=== PATIENT | female | born 1955 | race Caucasian/White ===

== ENCOUNTER 2017-08-28 20:52 | Inpatient (IN) | payer OTHER ==
--- NOTE | 2017-08-28 22:16 | C.PDOC ---
Time Seen by Provider: 08/28/17 21:40 Chief Complaint (Nursing): Abnormal Skin Integrity Past Medical History Vital Signs: Last Vital Signs Temp 98 F 08/28/17 21:19 Pulse 92 H 08/28/17 21:19 Resp 20 08/28/17 21:19 BP 123/79 08/28/17 21:19 Pulse Ox 99 08/28/17 21:19 - Medical History PMH: Hypothyroidism, TIA (2012) Surgical History: Appendectomy - [facility] Procedures DX ULTRASOUND-HEART (03/21/13) OTHER ESOPHAGOSCOPY (03/21/13) - Social History Hx Tobacco Use: No Hx Alcohol Use: No Hx Substance Use: No - Immunization History Hx Tetanus Toxoid Vaccination: Yes Hx Influenza Vaccination: Yes Hx Pneumococcal Vaccination: Yes ED Course And Treatment O2 Sat by Pulse Oximetry: 99 Disposition Discussed With : Rolando Salmon Doctor Will See Patient In The: Hospital Counseled Patient/Family Regarding: Studies Performed, Diagnosis - Disposition Disposition: HOSPITALIZED Disposition Time: 22:16 Condition: FAIR Forms: [facility] (Guamanian) - Clinical Impression Clinical Impression: Cellulitis
--- NOTE | 2017-08-28 22:20 | C.PDOC ---
History Of Present Illness Gregory Ceballos, 62 year old female presents to the Emergency Department complaining of knee injury and sleep apnea. Reports on July 25, patient had a left knee replacement. After surgery, patient visits physical therapy and when bending leg, rachana have moved. States she has the wound drained and her orthopaedic gave antibiotics without improvment to the left leg. Complaining it is purulent now. Denies fever or chills. PMD: Non [facility]PH Provider Time Seen by Provider: 08/28/17 21:40 Chief Complaint (Nursing): Abnormal Skin Integrity History Per: Patient History/Exam Limitations: no limitations Current Symptoms Are (Timing): Still Present Location Of Injury: Left: Knee Quality Of Symptoms: Draining Past Medical History Vital Signs: Last Vital Signs Temp 98.1 F 08/29/17 07:43 Pulse 84 08/29/17 07:43 Resp 20 08/29/17 07:43 BP 127/80 08/29/17 07:43 Pulse Ox 99 08/29/17 16:10 - Medical History PMH: Hypothyroidism, TIA (2012) Surgical History: Appendectomy - [facility] Procedures DX ULTRASOUND-HEART (03/21/13) OTHER ESOPHAGOSCOPY (03/21/13) Family History: States: Unknown Family Hx - Social History Hx Tobacco Use: No Hx Alcohol Use: No Hx Substance Use: No - Immunization History Hx Tetanus Toxoid Vaccination: Yes Hx Influenza Vaccination: Yes Hx Pneumococcal Vaccination: Yes Review Of Systems Except As Marked, All Systems Reviewed And Found Negative. Constitutional: Negative for: Fever, Chills Musculoskeletal: Positive for: Leg Pain (left knee) Physical Exam - Physical Exam Appears: Well Skin: Normal Color, Warm, Dry Head: Atraumatic, Normacephalic Neck: Normal, Normal ROM Cardiovascular: Rhythm Regular, No Murmur Respiratory: Normal Breath Sounds Gastrointestinal/Abdominal: Normal Exam, Bowel Sounds, Soft, No Tenderness Extremity: Normal ROM, Tenderness (left knee), Other (left knee vertical scar, hole, no prulent or blood drainage) Neurological/Psych: Oriented x3 ED Course And Treatment - Laboratory Results Result Diagrams: 08/28/17 22:15 08/28/17 22:15 ECG: Interpreted By Me, Viewed By Me ECG Rhythm: Sinus Rhythm ECG Interpretation: Normal Interpretation Of ECG: Normal intervals, normal axis, nonspecific ST changes Rate From EC O2 Sat by Pulse Oximetry: 99 (RA) Pulse Ox Interpretation: Normal Medical Decision Making Medical Decision Making: Time: 21:58 Initial Plan: --EKG --CMP --CBC --Chest x-ray --Knee 3 views --Blood culture --Saline Lock, 3ml NS Flush --Reevaluation Time: 22:18 Admitted to medical search: cellulites of left knee. Case discussed with Dr. Salmon and would like to admit patient. Keep patient npo for OR in AM. Scribe Attestation: Documented by Sulaiman Stevenson, acting as a scribe for Justin Lea MD Provider Scribe Attestation: All medical record entries made by the Scribe were at my direction and personally dictated by me. I have reviewed the chart and agree that the record accurately reflects my personal performance of the history, physical exam, medical decision making, and the department course for this patient. I have also personally directed, reviewed, and agree with the discharge instructions and disposition. Disposition Discussed With : Rolando Salmon Doctor Will See Patient In The: Hospital Counseled Patient/Family Regarding: Studies Performed, Diagnosis - Disposition Disposition: HOSPITALIZED Disposition Time: 22:16 Condition: FAIR - Clinical Impression Clinical Impression: Cellulitis
[2017-08-28 22:21] LABS: BASO # 0.1 K/uL (0.0-0.2); BASO % 0.9 % (0.0-2.0); EOS # 0.4 K/uL (0.0-0.7); EOS % 5.1 % (0.0-4.0); LYMPH # 1.8 K/uL (1.0-4.3); LYMPH % 24.9 % (20.0-40.0); MEAN CELL VOLUME 86.3 fL (81.0-99.0); MEAN CORPUSCULAR HEMOGLOBIN 28.1 pg (27.0-31.0); MEAN CORPUSCULAR HGB CONC 32.6 g/dL (33.0-37.0); MEAN PLATELET VOLUME 9.8 fL (7.2-11.7); MONO # 0.7 K/uL (0.0-0.8); MONO % 9.4 % (0.0-10.0); NEUT # 4.4 K/uL (1.8-7.0); NEUT % 59.7 % (50.0-75.0); NRBC % 0.1 % (0.0-2.0); RBC 3.92 Mil/uL (3.80-5.20); RED CELL DISTRIBUTION WIDTH 14.6 % (11.5-14.5); WHITE BLOOD COUNT 7.4 K/uL (4.8-10.8)
[2017-08-28 22:29] LABS: INR 1.1; PROTHROMBIN TIME 12.1 SECONDS (9.7-12.2)
[2017-08-28 22:35] LABS: ALB/GLOB RATIO 1.2 (1.0-2.1); ALBUMIN 4.1 g/dL (3.5-5.0); ALT/SGPT 24 U/L (9-52); AST/SGOT 25 U/L (14-36); BLOOD UREA NITROGEN 17 mg/dL (7-17); CALCIUM 8.8 mg/dl (8.6-10.4); GFR AFRICAN-AMERICAN > 60; GFR NON-AFRICAN AMERICAN > 60
--- NOTE | 2017-08-29 07:37 | CP.PCM.HP ---
History of Present Illness - History of Present Illness History of Present Illness: 62F s/p left total knee replacement 07/25/17 says a staple popped out while the patient was bending knee in PT and has had continued drainage from that site, presents to ER for evaluation for possible infection of left knee. On plavix for TIA in past. PMH: hypothyroid Present on Admission - Present on Admission Any Indicators Present on Admission: No Past Patient History - Past Medical History & Family History Past Medical History?: Yes - Past Social History Smoking Status: Never Smoked - CARDIAC Hx Cardiac Disorders: No - PULMONARY Hx Respiratory Disorders: No - NEUROLOGICAL Hx Neurological Disorder: Yes Hx Transient Ischemic Attacks (TIA): Yes (2012) - HEENT Hx HEENT Problems: No - RENAL Hx Chronic Kidney Disease: No - ENDOCRINE/METABOLIC Hx Endocrine Disorders: Yes Hx Hypothyroidism: Yes - HEMATOLOGICAL/ONCOLOGICAL Hx Blood Disorders: No - INTEGUMENTARY Hx Dermatological Problems: No - MUSCULOSKELETAL/RHEUMATOLOGICAL Hx Falls: No - GASTROINTESTINAL Hx Gastrointestinal Disorders: No - GENITOURINARY/GYNECOLOGICAL Hx Genitourinary Disorders: No - PSYCHIATRIC Hx Substance Use: No - SURGICAL HISTORY Hx Surgeries: Yes Hx Appendectomy: Yes Hx Musculoskeletal Surgery: Yes (Left knee replacement) - ANESTHESIA Hx Anesthesia: Yes Hx Anesthesia Reactions: No Hx Malignant Hyperthermia: No Has any member of the family had a problem w/ anesthesia?: No Meds Allergies/Adverse Reactions: Allergies Allergy/AdvReac Type Severity Reaction Status Date / Time No Known Allergies Allergy Verified 08/28/17 21:25 Physical Exam - Constitutional Appears: Well, No Acute Distress - Head Exam Head Exam: ATRAUMATIC - Respiratory Exam Respiratory Exam: NORMAL BREATHING PATTERN - Cardiovascular Exam Cardiovascular Exam: REGULAR RHYTHM - Back Exam Additional comments: small pin point area of drainage from lateral knee lateral to incision. Incision healed. small effusion. +ROM ankle/toes, sensation itact +DP/PT pulses calves soft NT eng hoamns - Neurological Exam Neurological exam: Alert, Oriented x3 - Psychiatric Exam Psychiatric exam: Normal Affect, Normal Mood - Skin Skin Exam: Normal Color, Warm Results - Vital Signs Recent Vital Signs: Last Vital Signs Temp 98 F 08/29/17 00:53 Pulse 84 08/29/17 00:53 Resp 18 08/29/17 02:06 BP 123/70 08/29/17 00:53 Pulse Ox 97 08/29/17 00:53 - Labs Result Diagrams: 08/30/17 07:23 08/30/17 07:23 Labs: Laboratory Results - last 24 hr 08/28/17 08/28/17 08/28/17 22:15 22:15 22:15 WBC 7.4 RBC 3.92 Hgb 11.0 Hct 33.8 L MCV 86.3 D MCH 28.1 MCHC 32.6 L RDW 14.6 H Plt Count 171 MPV 9.8 Neut % (Auto) 59.7 Lymph % (Auto) 24.9 [place] % (Auto) 9.4 Eos % (Auto) 5.1 H Baso % (Auto) 0.9 Neut # 4.4 Lymph # 1.8 [place] # 0.7 Eos # 0.4 Baso # 0.1 PT 12.1 INR 1.1 APTT 32 Sodium 136 Potassium 4.1 Chloride 100 Carbon Dioxide 29 Anion Gap 11 BUN 17 Creatinine 0.7 Est GFR ( Amer) > 60 Est GFR (Non-Af Amer) > 60 Random Glucose 108 H Calcium 8.8 Total Bilirubin 0.4 AST 25 ALT 24 Alkaline Phosphatase 80 Total Protein 7.5 Albumin 4.1 Globulin 3.4 Albumin/Globulin Ratio 1.2 Assessment & Plan (1) Cellulitis Assessment and Plan: wound drainage d/w Dr. Salmon, risks/benefits/alt explained to patient in detail, verbalized understanding, wishing to proceed with procedure NPOI T&C for OR Status: Acute (2) Hypothyroidism Assessment and Plan: cont home meds Status: Chronic
--- NOTE | 2017-08-29 07:48 | RAD ---
HISTORY: SOB COMPARISON: Chest x-ray performed 03/20/13 TECHNIQUE: Chest, one view. FINDINGS: Examination limited by habitus. LUNGS: No focal consolidation. Please note that chest x-ray has limited sensitivity for the detection of pulmonary masses. PLEURA: No significant pleural effusion identified. No definite pneumothorax . CARDIOVASCULAR: Heart size appears within normal limits. OSSEOUS STRUCTURES: No acute osseous abnormality identified. VISUALIZED UPPER ABDOMEN: Unremarkable. OTHER FINDINGS: None. IMPRESSION: No focal consolidation, significant pleural effusion, or definite pneumothorax identified.
[2017-08-29] MEDS: Sodium Chloride 0.9% 1,000 ML IV SCH (08:42)
[2017-08-29] MEDS: Levothyroxine 75 MCG TAB PO SCH (09:03)
[2017-08-29] MEDS: Multiple Vitamins Tab PO SCH (09:05)
[2017-08-29] MEDS ORDERED: Midazolam 2 MG/2 ML VIAL ONE ×2 (12:18→12:57)
[2017-08-29] MEDS ORDERED: Propofol 10 mg/ml Inj (20 ML) ONE ×2 (12:18→12:57)
[2017-08-29] MEDS ORDERED: Lidocaine Hydrochloride 5 ML INJ ONE (12:57)
[2017-08-29] MEDS ORDERED: ceFAZolin IV 2 gm in Dextrose 2 GM/50 ML BAG IVPB ONE (13:05)
[2017-08-29] MEDS ORDERED: ePHEDrine 50 mg/ml Inj ONE (13:16)
[2017-08-29] MEDS: Bacitracin 150,000 UNIT in Sodium Chloride 0.9% Irrig 3,000 ML IR SCH ×2 (14:00→14:12)
[2017-08-29] MEDS ORDERED: Vancomycin 1 g Inj ONE (14:13)
[2017-08-29] MEDS ORDERED: Bupivacaine Liposomal Inj 20 ml INFIL ONE (14:27)
[2017-08-29] MEDS ORDERED: Sodium Chloride 0.9% 40 ML IV ONE (14:34)
[2017-08-29] MEDS ORDERED: Esmolol 100 mg/10ml Inj IV ONE (15:13)
--- NOTE | 2017-08-29 15:32 | PCM.SURG1 ---
Surgeon's Initial Post Op Note - Surgeon's Notes Surgeon: Michael Salmon MD Digital Press Operator: Marika Ordoñez PA-C Type of Anesthesia: General Endo Anesthesia Administered By: Dr. Lea Pre-Operative Diagnosis: Left knee wound infection s/p TKR Operative Findings: tourniquet 85 min @ 300mmHg Post-Operative Diagnosis: same Operation Performed: I&D left knee. revision total knee: poly exchange. wound vac application Specimen/Specimens Removed: cultures sent Estimated Blood Loss: EBL {In ML}: 25 Blood Products Given: N/A Drains Used: No Drains Post-Op Condition: Fair Date of Surgery/Procedure: 08/29/17 Time of Surgery/Procedure: 16:31
[2017-08-29] MEDS: DiphenhydrAMINE 50 mg/ml Inj IVP PRN (19:00)
[2017-08-29] MEDS: Oxycodone/Acetaminophen 5/325 mg Tab PO PRN (22:13)
[2017-08-30] MEDS: Sodium Chloride 0.9% 1,000 ML IV SCH ×2 (00:55→17:42)
--- NOTE | 2017-08-30 02:28 | OP ---
PROCEDURE DATE: 08/29/2017 PREOPERATIVE DIAGNOSIS: Left knee effusion, status post left total knee replacement. POSTOPERATIVE DIAGNOSIS: Left knee effusion, status post left total knee replacement. PROCEDURE: Irrigation and debridement of left knee, exchange of poly bearing and application of wound VAC. SURGEON: Rolando Salmon MD PHYSICIAN REPRESENTATIVE: Renee Ordoñez, the physician apartment community assistant manager. TYPE OF ANESTHESIA: General. COMPLICATIONS: None. ESTIMATED BLOOD LOSS: 25 mL. TOURNIQUET TIME: An hour and 20 minutes at 300 mmHg. INDICATIONS FOR PROCEDURE: This is a 62-year-old female, who 5 weeks ago underwent a left total knee replacement. Postoperatively, the patient did well and was at home getting physical therapy when she said after a session of physical therapy where her knee was flexed, patient had a part of the skin opened up and she started having some drainage. She was started on p.o. antibiotics and the drainage subsided; however, still had small amounts of drainage and recommendations at that point were for open irrigation and debridement of the left knee with exchange of the poly. The risks and benefits of the procedure were discussed with the patient and informed consent was obtained. DESCRIPTION OF PROCEDURE: After surgical site was finally verified in the preoperative holding area, the patient was taken to the operating room and placed supine on the operating room table. After administration of general anesthesia, tourniquet was placed about the left thigh. Care was taken to make sure that all bony prominences and nerves were well padded and protected. Venodyne boot was placed on the nonoperative extremity and the left lower extremity was prepped and draped in the usual sterile fashion. The tourniquet was then inflated and the previous incision was incised. Subcutaneous tissue was dissected sharply down to the knee joint. There was a small sinus just lateral to the incision that communicated into the knee joint with lateral release that was previously done. At this point, a fluid specimen was sent off for stat Gram stain. The result of the stat Gram stain showed a few PMNs with no organism seen. Anaerobic and aerobic cultures were also taken as well as the tissue culture from the lateral gutter. At this point, a medial parapatellar arthrotomy was performed, and the previous poly bearing was easily removed. The knee joint was inspected for any purulence. No purulence was appreciated. No hematoma was appreciated. At this point, any loose tissue was sharply debrided as was the sinus tract. Next, the knee joint was pulse lavaged with approximately 7 liters of antibiotic saline solution. A new drain was placed and a 14-plus bearing was inserted and locked into place with a cross pin. At this point, the arthrotomy was closed using #1 Vicryl suture, the subcutaneous tissue was closed using 0 Vicryl and 2-0 Vicryl suture, and the skin was closed using 3-0 nylon. Wound VAC was applied and sterile dressing was placed over the wound VAC. The patient was awakened from the procedure and taken to the recovery room in stable condition. Rolando Salmon MD
[2017-08-30] MEDS: Levothyroxine 75 MCG TAB PO SCH (06:07)
[2017-08-30 07:29] LABS: HEMOGLOBIN 9.9 g/dL (11.0-16.0); MEAN CELL VOLUME 86.3 fL (81.0-99.0); MEAN CORPUSCULAR HGB CONC 33.6 g/dL (33.0-37.0); MEAN PLATELET VOLUME 9.4 fL (7.2-11.7); RBC 3.42 Mil/uL (3.80-5.20); RED CELL DISTRIBUTION WIDTH 14.2 % (11.5-14.5); WHITE BLOOD COUNT 6.7 K/uL (4.8-10.8)
[2017-08-30 08:12] LABS: BLOOD UREA NITROGEN 7 mg/dL (7-17); CALCIUM 8.7 mg/dl (8.6-10.4); GFR AFRICAN-AMERICAN > 60; GFR NON-AFRICAN AMERICAN > 60
[2017-08-30] MEDS: Multiple Vitamins Tab PO SCH (09:50)
[2017-08-30] MEDS: Oxycodone/Acetaminophen 5/325 mg Tab PO PRN ×2 (09:52→17:52)
--- NOTE | 2017-08-30 09:53 | RAD ---
PROCEDURE: Left Knee Radiographs. HISTORY: Pain. COMPARISON: None. FINDINGS: There has been prior total knee arthroplasty with prosthetic components in good alignment. No periprosthetic lucency is seen to suggest component loosening or fracture. A wound VAC is seen in the suprapatellar region. IMPRESSION: Findings as above.
--- NOTE | 2017-08-30 10:46 | CP.PCM.PN ---
Subjective - Date & Time of Evaluation Date of Evaluation: 08/30/17 Time of Evaluation: 10:45 - Subjective Subjective: Pt awake,alert. Adequate pain control. Afebrile, VSS L knee: dressing intact wound VAC with good seal NVI distally Hg 9.9 POD#1 check cultures dressing change tomorrow Objective - Vital Signs/Intake and Output Vital Signs (last 24 hours): Temp Pulse Resp BP Pulse Ox 98.4 F 96 H 20 127/71 98 08/30/17 08:33 08/30/17 08:33 08/30/17 08:33 08/30/17 08:33 08/30/17 08:33 Intake and Output: 08/30/17 08/30/17 06:59 18:59 Intake Total 1110 Balance 1110 - Medications Medications: Current Medications Diphenhydramine HCl (Benadryl) 25 mg IVP Q6 PRN PRN Reason: Itching / Pruritus Last Admin: 08/29/17 19:00 Dose: 25 mg Docusate Sodium (Colace) 100 mg PO BID [facility] Last Admin: 08/30/17 09:52 Dose: 100 mg Enoxaparin Sodium (Lovenox) 40 mg SC Q24H [facility] Sodium Chloride (Sodium Chloride 0.9%) 1,000 mls @ 60 mls/hr IV .[id number] [facility] Last Admin: 08/30/17 00:55 Dose: Not Given Levothyroxine Sodium (Synthroid) 75 mcg PO DAILY@0630 [facility] Last Admin: 08/30/17 06:07 Dose: 75 mcg Multivitamins (Hexavitamin) 1 tab PO DAILY [facility] Last Admin: 08/29/17 09:05 Dose: Not Given Oxycodone/Acetaminophen (Percocet 5/325 Mg Tab) 1 tab PO Q4 PRN PRN Reason: Pain, moderate (4-7) Stop: 09/01/17 15:49 Last Admin: 08/30/17 09:52 Dose: 1 tab - Labs Labs: 08/30/17 07:23 08/30/17 07:23 PT 12.1 SECONDS (9.7-12.2) 08/28/17 22:15 INR 1.1 08/28/17 22:15 APTT 32 SECONDS (21-34) 08/28/17 22:15
--- NOTE | 2017-08-30 11:01 | CARD ---
APPROVED REPORT EKG Measurement Heart [id number] ID [id number] <Conclusion> Normal sinus rhythm Nonspecific ST abnormality Abnormal ECG
[2017-08-30] MEDS: Enoxaparin 40 mg Syringe SC SCH (14:17)
[2017-08-30] MEDS ORDERED: Ergocalciferol 50,000 Intl Units Cap PO SCH (16:30)
[2017-08-30] MEDS: Potassium Chloride 20 mEq ER Tab PO SCH (17:46)
[2017-08-30] MEDS: DiphenhydrAMINE 50 mg/ml Inj IVP PRN (17:52)
[2017-08-31] MEDS: Levothyroxine 75 MCG TAB PO SCH (06:09)
[2017-08-31 06:12] LABS: HEMOGLOBIN 10.2 g/dL (11.0-16.0); MEAN CELL VOLUME 85.5 fL (81.0-99.0); MEAN CORPUSCULAR HEMOGLOBIN 29.4 pg (27.0-31.0); MEAN CORPUSCULAR HGB CONC 34.4 g/dL (33.0-37.0); MEAN PLATELET VOLUME 9.8 fL (7.2-11.7); RBC 3.45 Mil/uL (3.80-5.20); WHITE BLOOD COUNT 7.8 K/uL (4.8-10.8)
[2017-08-31] MEDS: Oxycodone/Acetaminophen 5/325 mg Tab PO PRN ×2 (06:12→14:36)
[2017-08-31 06:32] LABS: BLOOD UREA NITROGEN 9 mg/dL (7-17); CALCIUM 8.4 mg/dl (8.6-10.4); GFR AFRICAN-AMERICAN > 60; GFR NON-AFRICAN AMERICAN > 60
[2017-08-31 08:50] VITALS: RESP 20
[2017-08-31] MEDS: Multiple Vitamins Tab PO SCH (10:00)
[2017-08-31] MEDS: Potassium Chloride 20 mEq ER Tab PO SCH (10:00)
--- NOTE | 2017-08-31 13:27 | CP.PCM.PN ---
Subjective - Date & Time of Evaluation Date of Evaluation: 08/31/17 Time of Evaluation: 12:00 - Subjective Subjective: Patient states pain is controlled. No new complaints. Objective - Vital Signs/Intake and Output Vital Signs (last 24 hours): Temp Pulse Resp BP Pulse Ox 98.5 F 96 H 20 106/63 95 08/31/17 08:00 08/31/17 08:00 08/31/17 08:00 08/31/17 08:00 08/31/17 08:00 Intake and Output: 08/31/17 08/31/17 06:59 18:59 Intake Total 1210 Balance 1210 - Medications Medications: Current Medications Clopidogrel Bisulfate (Plavix) 75 mg PO DAILY [facility] Last Admin: 08/31/17 10:00 Dose: 75 mg Diphenhydramine HCl (Benadryl) 25 mg IVP Q6 PRN PRN Reason: Itching / Pruritus Last Admin: 08/30/17 17:52 Dose: 25 mg Docusate Sodium (Colace) 100 mg PO BID [facility] Last Admin: 08/31/17 10:00 Dose: 100 mg Enoxaparin Sodium (Lovenox) 40 mg SC Q24H [facility] Last Admin: 08/30/17 14:17 Dose: 40 mg Ergocalciferol (Drisdol 50,000 Intl Units Cap) 1 cap PO Q7D [facility] Last Admin: 08/30/17 17:46 Dose: 1 cap Levothyroxine Sodium (Synthroid) 75 mcg PO DAILY@0630 [facility] Last Admin: 08/31/17 06:09 Dose: 75 mcg Multivitamins (Hexavitamin) 1 tab PO DAILY [facility] Last Admin: 08/31/17 10:00 Dose: 1 tab Oxycodone/Acetaminophen (Percocet 5/325 Mg Tab) 1 tab PO Q4 PRN PRN Reason: Pain, moderate (4-7) Stop: 09/01/17 15:49 Last Admin: 08/31/17 06:12 Dose: 1 tab Potassium Chloride (K-Dur 20 Meq Er Tab) 20 meq PO DAILY [facility] Last Admin: 08/31/17 10:00 Dose: 20 meq - Labs Labs: 08/31/17 06:03 08/31/17 06:03 PT 12.1 SECONDS (9.7-12.2) 08/28/17 22:15 INR 1.1 08/28/17 22:15 APTT 32 SECONDS (21-34) 08/28/17 22:15 - Extremities Exam Additional comments: wound vac removed. No active drainage from wound. when pressure applied to knee small amount of serosang drainage noted. wound vac reapplied. +ROM ankle;/toes, s ensat ion intact calves soft NT neg homans Assessment and Plan (1) Cellulitis Assessment & Plan: awaiting auth for wound vac cont ancef prophylactically cx negative thus far incision site dry intact, no erythema plan d/c home with wound vac on PO antibiotics d/w Dr. Salmon, agrees with above Status: Acute (2) Hypothyroidism Status: Chronic
[2017-08-31] MEDS ORDERED: ceFAZolin IV 2 gm in Dextrose 2 GM/50 ML BAG IVPB SCH (14:00)
[2017-08-31] MEDS: Enoxaparin 40 mg Syringe SC SCH (14:37)
[2017-08-31 15:49] VITALS: BP 126/73; PULSE 88; TEMP 99.3; O2SAT 97
--- NOTE | 2017-08-31 17:35 | CP.PCM.DIS ---
Provider - Provider Date of Admission: 08/28/17 22:15 Attending physician: Rolando Salmon MD Time Spent in preparation of Discharge (in minutes): 5 Diagnosis - Discharge Diagnosis (1) Cellulitis Status: Acute Comment: cont vantin and doxycycline on discharge as per Dr. Salmon (2) Hypothyroidism Status: Chronic (3) Acute blood loss anemia Status: Acute Comment: stable Hospital Course - Lab Results Lab Results: Micro Results 08/29/17 15:16 Knee - Left Gram Stain - Final 08/29/17 15:16 Knee - Left Wound Culture - Preliminary No growth. 08/29/17 15:19 Other: Please Indicate Gram Stain - Final 08/29/17 15:19 Other: Please Indicate Tissue Culture - Preliminary NO GROWTH AFTER 48 HOURS 08/29/17 15:18 Knee - Left Gram Stain - Final 08/29/17 15:18 Knee - Left Wound Culture - Preliminary No growth. 08/29/17 13:57 Synovial Fluid Gram Stain - Final 08/29/17 13:57 Synovial Fluid Body Fluid Culture - Preliminary NO GROWTH AFTER 2 DAYS 08/28/17 22:00 Blood Blood Culture - Preliminary NO GROWTH AFTER 48 HOURS 08/28/17 22:30 Blood Blood Culture - Preliminary NO GROWTH AFTER 48 HOURS Most Recent Lab Values WBC 7.8 K/uL (4.8-10.8) 08/31/17 06:03 RBC 3.45 Mil/uL (3.80-5.20) L 08/31/17 06:03 Hgb 10.2 g/dL (11.0-16.0) L 08/31/17 06:03 Hct 29.5 % (34.0-47.0) L 08/31/17 06:03 MCV 85.5 fL (81.0-99.0) 08/31/17 06:03 MCH 29.4 pg (27.0-31.0) 08/31/17 06:03 MCHC 34.4 g/dL (33.0-37.0) 08/31/17 06:03 RDW 14.0 % (11.5-14.5) 08/31/17 06:03 Plt Count 160 K/uL (130-400) 08/31/17 06:03 Neut % (Auto) 59.7 % (50.0-75.0) 08/28/17 22:15 MPV 9.8 fL (7.2-11.7) 08/31/17 06:03 Lymph % (Auto) 24.9 % (20.0-40.0) 08/28/17 22:15 Day % (Auto) 9.4 % (0.0-10.0) 08/28/17 22:15 Eos % (Auto) 5.1 % (0.0-4.0) H 08/28/17 22:15 Baso % (Auto) 0.9 % (0.0-2.0) 08/28/17 22:15 Neut # 4.4 K/uL (1.8-7.0) 08/28/17 22:15 Lymph # 1.8 K/uL (1.0-4.3) 08/28/17 22:15 Day # 0.7 K/uL (0.0-0.8) 08/28/17 22:15 Eos # 0.4 K/uL (0.0-0.7) 08/28/17 22:15 Baso # 0.1 K/uL (0.0-0.2) 08/28/17 22:15 PT 12.1 SECONDS (9.7-12.2) 08/28/17 22:15 INR 1.1 08/28/17 22:15 APTT 32 SECONDS (21-34) 08/28/17 22:15 Sodium 131 mmol/L (132-148) L 08/31/17 06:03 Potassium 3.9 mmol/L (3.6-5.2) 08/31/17 06:03 Chloride 99 mmol/L (98-107) 08/31/17 06:03 Carbon Dioxide 25 mmol/L (22-30) 08/31/17 06:03 Anion Gap 12 (10-20) 08/31/17 06:03 BUN 9 mg/dL (7-17) 08/31/17 06:03 Creatinine 0.6 mg/dL (0.7-1.2) L 08/31/17 06:03 Est GFR ( Amer) > 60 08/31/17 06:03 Est GFR (Non-Af Amer) > 60 08/31/17 06:03 Random Glucose 114 mg/dL (65-105) H 08/31/17 06:03 Calcium 8.4 mg/dl (8.6-10.4) L 08/31/17 06:03 Total Bilirubin 0.4 mg/dL (0.2-1.3) 08/28/17 22:15 AST 25 U/L (14-36) 08/28/17 22:15 ALT 24 U/L (9-52) 08/28/17 22:15 Alkaline Phosphatase 80 U/L (38-126) 08/28/17 22:15 Total Protein 7.5 g/dL (6.3-8.3) 08/28/17 22:15 Albumin 4.1 g/dL (3.5-5.0) 08/28/17 22:15 Globulin 3.4 gm/dL (2.2-3.9) 08/28/17 22:15 Albumin/Globulin Ratio 1.2 (1.0-2.1) 08/28/17 22:15 25-OH Vitamin D Total 19.4 NG/ML (30.0-100.0) L 08/30/17 07:23 Blood Type B POSITIVE 08/29/17 08:27 Antibody Screen Negative 08/29/17 08:27 - Hospital Course Hospital Course: 62 F s/p left TKR on 07/25/2017 with small draining wound to knee, taken to OR for I&D, poly exchange, wound vac application. Cultures prelim negative. wound vac was changed, new dressing applied, patient approved for device at home, will be discharged on PO antibiotics and insturcted to continue wound vac and follow up cyn Salmon in office on 09/04. Keep knee immobilizer intact and WBAT with walker. Discharge Exam - Head Exam Head Exam: ATRAUMATIC Discharge Plan - Discharge Medications Prescriptions: Cefpodoxime [Vantin] 200 mg PO BID #20 tab Doxycycline Hyclate 100 mg PO BID #20 capsule - Follow Up Plan Condition: FAIR Disposition: HOME/ ROUTINE
== END 2017-08-31 19:10 | disposition home or self-care (01) | DRG 486 ==
LOC: C.ER 20:52 → C.3T 22:15 → C.9E 22:15 → C.3T 08-29 00:31 → C.9S 08-29 12:56 → C.6T 08-29 17:23
PROVIDERS: ADMIT Orthopaedic Surgery; ATTEND Orthopaedic Surgery
PROC: 0SUW09Z Supplement Left Knee Joint, Tibial Surface with Liner, Open Approach (ICD-10-PCS; 2017-08-29)
PROC: 0SPD09Z Removal of Liner from Left Knee Joint, Open Approach (ICD-10-PCS; principal; 2017-08-29 12:45)
DX: T84.54XA Infection and inflammatory reaction due to internal left knee prosthesis, initial encounter (principal); L03.116 Cellulitis of left lower limb; D62 Acute posthemorrhagic anemia; E03.9 Hypothyroidism, unspecified; G47.30 Sleep apnea, unspecified; Z96.652 Presence of left artificial knee joint; Y79.2 Prosthetic and other implants, materials and accessory orthopedic devices associated with adverse incidents; Z86.73 Personal history of transient ischemic attack (TIA), and cerebral infarction without residual deficits; Z90.49 Acquired absence of other specified parts of digestive tract